=== PATIENT | female | born 1950 | race Caucasian/White ===

== ENCOUNTER 2023-11-04 09:29 | Day surgery (SDC) | payer MEDICARE, OTHER ==
[~2023-11-04] VITALS: Ht 320 cm; Wt 77.5 kg
[~2023-11-04 09:29] MED LIST: ARMOUR THYROID90 MG PO; COMBIGAN EYE DRO5 ML OD; COZAAR50 MG PO; FISH OIL SOFTG1 EAC2 PO; IBLOOD GLUCOSE TEST STRIP 1 EA TEST VI PRN; LACTATED RINGER'S 1,000 ML IV SCH; LIDOCAINE HCL 1% 5 ML SDV INJ ONE; MIDAZOLAM HCL 5 MG/5 ML VIAL IV PRN; MULTIVITAMINS1 EAC7 PO; NP THYROID30 MG PO; TURMERIC500 M2; VITAMIN C1000 MG; VITAMIN D1000 UNI1 PO; fentaNYL citrate 100 MCG/2 ML VIAL IV PRN
[2023-11-04 09:55] VITALS: BP 158/79
[2023-11-04] MEDS ORDERED: MIDAZOLAM HCL 2 MG/2 ML VIAL ONE (10:01)
[2023-11-04] MEDS ORDERED: fentaNYL citrate 100 MCG/2 ML VIAL ONE ×2 (10:01→10:37)
--- NOTE | 2023-11-04 11:33 | NUR ---
11/04/23 1133 [place] 1122-PATIENT ARRIVED TO PACU ON 2L NC RR EVEN. PATIENT REACTIVE TO VERBAL STIMULI DENIES PAIN OR NAUSEA. ENCOURAGED TO PASS GAS. IVF INFUSING. SR HR 60'S. 1132-PATIENT SLEEPING PASSING GAS AWAKENS . 2L NC 94% RR EVEN. DENIES PAIN OR NAUSEA. DOZES BACK TO SLEEP.
[2023-11-04 12:17] VITALS: BP 108/68
--- NOTE | 2023-11-06 09:43 | OR ---
[facility] [address] [place], [place] [address] Signed DATE OF OPERATION: 11/04/2023 SURGEON: Robin Corey MD PREOPERATIVE DIAGNOSIS: Colon screening. POSTOPERATIVE DIAGNOSES: 1. Mild right-sided colitis. 2. Low sessile adenomatous polyp (excised). PROCEDURES: 1. Total colonoscopy to cecum with random biopsies. 2. Hot snare polypectomy low rectal polyp. ANESTHESIA: Intravenous sedation; fentanyl 150 mcg and Versed 7 mg. INDICATION: This 73-year-old white woman is a patient of Andres Ferguson. She is known to have a left-sided spigelian hernia which is yet to be scheduled and repaired as she is "thinking about it." The patient last underwent colonoscopy in 2013, which was normal. She is currently noted to have some episodes of rectal bleeding. She does have family history of possible ulcerative colitis. She is admitted at this time to undergo colonoscopy. She understands the risk of bleeding, infection, and perforation. FINDINGS: The prep was good. The procedure was extremely difficult, but ultimately was accomplished fully to the cecum. Angulation deformity in the splenic flexure and right colon provided great challenge for safe passage of the scope, but it was accomplished ultimately. She did have an adenomatous appearing polyp approximately 1.5 cm in the very low rectum, which was excised. There is mild inflammatory change, having an appearance of "burnt out" colitis in the right side, though she is not known to specifically have colitis herself. PROCEDURE IN DETAIL: The patient was brought to the surgical endoscopy suite and placed in the lateral decubitus position, given intravenous sedation to the point of slurred speech and Electronically Signed By: ROBIN COREY MD 11/06/23 0943 PATIENT NAME: ROSANNE WALKER OPERATIVE REPORT DATE OF : 54 REPORT #: [id number] PHYSICIAN: ROBIN COREY MD PCP: ANDRES FERGUSON PAC REPORT IS CONFIDENTIAL AND NOT TO BE RELEASED WITHOUT AUTHORIZATION [facility] [address] [place], [place] [address] Signed nystagmus with full cardiopulmonary monitoring. Digital rectal examination was normal. An Olympus video colonoscope was passed in the rectum and manipulated throughout the colon. Beyond the splenic flexure, passage was somewhat challenging requiring various maneuvers, ultimately requiring the supine position. Abdominal wall stabilization did not have appreciable beneficial effect. With care and considerable amount of time and various manipulations, the scope was ultimately advanced to the cecum itself. The right colon appeared to have a "burned out colitis" appearance, though she is not known to have had true ulcerative colitis in the past. Biopsies were taken of the cecum once fully visualized as well as the right colon, hepatic flexure, transverse colon, and splenic flexure. Biopsies were additionally taken of the sigmoid. Upon withdrawal to the rectum, a pedunculated broad-based polyp was noted. This is in the very lowest portion of the rectum. This was excised with hot snare polypectomy technique and extracted for evaluation and permanent pathology. The scope was reintroduced and retroflexed view undertaken showed the excision site to be completely hemostatic. The scope was removed and the patient was taken to the recovery room in good condition. CONCLUDING DIAGNOSES: 1. Low rectal polyp, possibly accounting for rectal bleeding. 2. Questionable right-sided "burn out" of colon with chronic colitis appearance. 3. Difficult colonoscopy. PLAN: We will schedule follow up to see her back for spigelian hernia and to review her pathology report and findings regarding the colon. Robin Corey MD JM/MODL /[id number] cc: GRICEL Rueda Electronically Signed By: ROBIN COREY MD 11/06/23 0943 PATIENT NAME: ROSANNE WALKER OPERATIVE REPORT DATE OF : 54 REPORT #: [id number] PHYSICIAN: ROBIN COREY MD PCP: ANDRES FERGUSON PAC REPORT IS CONFIDENTIAL AND NOT TO BE RELEASED WITHOUT AUTHORIZATION [facility] [address] [place] [address] Signed Copies: ~ Electronically Signed By: ROBIN COREY MD 11/06/23 0943 PATIENT NAME: ROSANNE WALKER OPERATIVE REPORT DATE OF : 54 REPORT #: [id number] PHYSICIAN: ROBIN COREY MD PCP: ANDRES FERGUSON PAC REPORT IS CONFIDENTIAL AND NOT TO BE RELEASED WITHOUT AUTHORIZATION
--- NOTE | 2023-11-06 17:10 | PATH ---
[facility] [address] [place], [place] [address] Signed SPECIMEN(S): A CECUM BIOPSY SPECIMEN(S): B HEPATIC FLEXURE BIOPSY SPECIMEN(S): C TRANSVERSE BIOPSY SPECIMEN(S): D SPLENIC FLEXURE BIOPSY SPECIMEN(S): E SIGMOID BIOPSY SPECIMEN(S): F RECTUM BIOPSY SPECIMEN(S): G RECTAL POLYP SPECIMEN SOURCE: A. CECUM BIOPSY B. HEPATIC FLEXURE BIOPSY C. TRANSVERSE BIOPSY D. SPLENIC FLEXURE BIOPSY E. SIGMOID BIOPSY F. RECTUM BIOPSY G. RECTAL POLYP CLINICAL HISTORY: History rectal bleeding/family history of colon cancer FINAL PATHOLOGIC DIAGNOSIS: A. Cecum, biopsy: - Benign colonic mucosa, negative for specific diagnostic abnormality. B. Hepatic flexure, biopsy: - Benign colonic mucosa, negative for specific diagnostic abnormality. C. Transverse, biopsy: - Benign colonic mucosa, negative for specific diagnostic abnormality. D. Splenic flexure, biopsy: - Benign colonic mucosa, negative for specific diagnostic abnormality. E. Sigmoid, biopsy: - Benign colonic mucosa, negative for specific diagnostic abnormality. F. Rectum, biopsy: - Benign colonic mucosa with hyperplastic features (two fragments). - Negative for pathologic inflammation. G. Rectal, polyp: - Tubular adenoma (multiple fragments). JVR:cml MICROSCOPIC EXAMINATION: Histologic sections of all submitted blocks are examined by light microscopy. These findings, together with the gross examination, support the pathologic PATIENT NAME: ROSANNE WALKER PATHOLOGY DATE OF : 54 REPORT #: [id number] PHYSICIAN: GHADA BALDWIN PCP: ANDRES FERGUSON PAC REPORT IS CONFIDENTIAL AND NOT TO BE RELEASED WITHOUT AUTHORIZATION [facility] [address] [place], [place] [address] Signed diagnosis. GROSS DESCRIPTION: A. The specimen, labeled and designated "Radha, cecum biopsy," is received in formalin and consists of three guthrie soft tissue fragments, ranging from 0.1-0.4 cm. Entirely submitted in (A1). B. The specimen, labeled and designated "Radha, hepatic flexure biopsy," is received in formalin and consists of three guthrie soft tissue fragments, ranging from 0.2-0.3 cm. Entirely submitted in (B1). C. The specimen, labeled and designated "Radha, transverse biopsy," is received in formalin and consists of two guthrie soft tissue fragments, ranging from 0.1-0.3 cm. Entirely submitted in (C1). D. The specimen, labeled and designated "Radha, splenic flexure biopsy," is received in formalin and consists of three guthrie soft tissue fragments, ranging from 0.1-1.3 cm. Entirely submitted in (D1). E. The specimen, labeled and designated "Radha, sigmoid biopsy," is received in formalin and consists of two guthrie soft tissue fragments, ranging from 0.3-0.8 cm. Entirely submitted in (E1). F. The specimen, labeled and designated "Radha, rectum biopsy," is received in formalin and consists of two guthrie soft tissue fragments, ranging from 0.1-0.3 cm. Entirely submitted in (F1). G. The specimen, labeled and designated "Radha, rectal polyp," is received in formalin and consists of two guthrie-brown polypoid pieces of tissue (0.5 x 0.4 x 0.4 cm, and 0.8 x 0.6 x 0.6 cm). The possible resection margins are differentially inked black (bisected) and blue (trisected) respectively, and sectioning reveals pink-guthrie to red-brown soft cut surfaces. The specimen is submitted entirely in cassette (G1). VB (under the direct supervision of a pathologist) The Gross Description was prepared using a voice recognition system. The report was reviewed for accuracy; however, sound-alike word errors, addition and/or deletions may occur. If there is any question about this report, please contact Client Services. PERFORMING LABORATORY: Technical component was performed by [facility], [address] [place] [id number] (CLIA# [id number]). Professional interpretation was performed by [facility], [address] [place] [id number] (CLIA#: [id number]). Diagnostician: Gopi Metz MD PATIENT NAME: ROSANNE WALKER PATHOLOGY DATE OF : 54 REPORT #: [id number] PHYSICIAN: GHADA BALDWIN PCP: ANDRES FERGUSON PAC REPORT IS CONFIDENTIAL AND NOT TO BE RELEASED WITHOUT AUTHORIZATION [facility] [address] [place] [address] Signed Pathologist Electronically Signed 11/06/2023 Copies: ~ PATIENT NAME: ROSANNE WALKER PATHOLOGY DATE OF : 54 REPORT #: [id number] PHYSICIAN: GHADA BALDWIN PCP: ANDRES FERGUSON PAC REPORT IS CONFIDENTIAL AND NOT TO BE RELEASED WITHOUT AUTHORIZATION
== END 2023-11-04 12:35 | disposition home or self-care (01) ==
LOC: DS 09:29
PROVIDERS: ATTEND Surgery
PROC: 0DBL8ZZ Excision of Transverse Colon, Via Natural or Artificial Opening Endoscopic (ICD-10-PCS; 2023-11-04)
PROC: 0DBN8ZZ Excision of Sigmoid Colon, Via Natural or Artificial Opening Endoscopic (ICD-10-PCS; 2023-11-04)
PROC: 0DBP8ZZ Excision of Rectum, Via Natural or Artificial Opening Endoscopic (ICD-10-PCS; 2023-11-04)
PROC: 0DBH8ZZ Excision of Cecum, Via Natural or Artificial Opening Endoscopic (ICD-10-PCS; principal; 2023-11-04 11:00)
DX: Z12.11 Encounter for screening for malignant neoplasm of colon (principal); D12.8 Benign neoplasm of rectum; K63.5 Polyp of colon; K52.9 Noninfective gastroenteritis and colitis, unspecified; K43.6 Other and unspecified ventral hernia with obstruction, without gangrene; I10 Essential (primary) hypertension; Z88.2 Allergy status to sulfonamides; Z80.0 Family history of malignant neoplasm of digestive organs; Z90.5 Acquired absence of kidney
CPT/HCPCS: 88305; 99153; G0500; J2250; J3010

== ENCOUNTER 2024-03-23 06:00 | Day surgery (SDC) | payer MEDICARE, OTHER ==
[2024-03-18 14:51] VITALS: BP 139/86
[~2024-03-23] VITALS: Ht 167.6 cm; Wt 72.7 kg
[~2024-03-23 06:00] MED LIST changes: -IBLOOD GLUCOSE TEST STRIP 1 EA TEST VI PRN; -LIDOCAINE HCL 1% 5 ML SDV INJ ONE; -MIDAZOLAM HCL 5 MG/5 ML VIAL IV PRN; -fentaNYL citrate 100 MCG/2 ML VIAL IV PRN
[2024-03-23 06:16] VITALS: BP 168/78
[2024-03-23] MEDS ORDERED: GEL LUBRICATING MULTI-INGRED LARGE TUBE ONE (06:55)
[2024-03-23] MEDS ORDERED: BACITRACIN ONE (06:55)
[2024-03-23] MEDS ORDERED: CEFAZOLIN SODIUM 2 GM/20 ML SYR IV SCH (07:00)
[2024-03-23] MEDS ORDERED: HEParin SOD (PORCINE) 5,000 UNIT/ML SDV SUB-Q SCH (07:00)
[2024-03-23] MEDS ORDERED: IBLOOD GLUCOSE TEST STRIP 1 EA TEST VI PRN (07:00)
[2024-03-23] MEDS ORDERED: LIDOCAINE HCL 1% 5 ML SDV INJ ONE (07:00)
[2024-03-23] MEDS ORDERED: BUPIVACAINE 0.75% IN DEXTROSE 2 ML AMP ONE (08:26)
[2024-03-23] MEDS ORDERED: fentaNYL citrate 100 MCG/2 ML VIAL ONE (08:26)
[2024-03-23] MEDS ORDERED: LIDOCAINE HCL 2% 5 ML SDV ONE (08:26)
[2024-03-23] MEDS ORDERED: propofoL 200 MG/20 ML VIAL ONE ×2 (08:44→08:45)
[2024-03-23] MEDS ORDERED: DEXAMETHASONE SOD PHOS 4 MG/ML VIAL ONE (08:44)
[2024-03-23] MEDS ORDERED: ACETAMINOPHEN 1,000 MG/100 ML VIAL ONE (08:53)
[2024-03-23] MEDS ORDERED: ondansetron HCL 4 MG/2 ML VIAL ONE (09:15)
[2024-03-23] MEDS ORDERED: ePHEDrine sulfate 50 MG/ML AMP ONE (09:30)
[2024-03-23] MEDS ORDERED: SEVOFLURANE 250 ML BTL INH ONE (09:42)
[2024-03-23] MEDS ORDERED: OXYCODON-ACETA1 EAC2 PO (10:50)
[2024-03-23] MEDS ORDERED: IBUPROFEN600 MG PO (10:50)
[2024-03-23] MEDS ORDERED: ACETAMINOPHEN500 MG PO (10:51)
[2024-03-23 11:00] VITALS: BP 128/58
[2024-03-23] MEDS ORDERED: NALOXONE HCL 0.4 MG SYR IV PRN (11:00)
[2024-03-23] MEDS ORDERED: LACTATED RINGER'S 1,000 ML IV SCH (11:00)
[2024-03-23] MEDS ORDERED: IBUPROFEN 600 MG TAB PO PRN (11:00)
[2024-03-23] MEDS ORDERED: ondansetron HCL 4 MG/2 ML VIAL IV PRN (11:00)
[2024-03-23] MEDS ORDERED: ACETAMINOPHEN 500 MG TAB PO PRN (11:00)
[2024-03-23] MEDS ORDERED: OXYCODONE/APAP 7.5/325 TAB PO PRN (11:00)
--- NOTE | 2024-03-23 11:00 | NUR ---
1100- PT ARRIVES FROM PACU SITTING IN SEMI FOWLERS AND TALKING WITH RN. BEDSIDE REPORT RECIEVED FROM MERY GORMAN. PT O2 LEVELS ARE IN THE LOW 90S. PT IS ENCOURAGED TO DEEP BREATH. PT IS EDUCATED ON USING A IS. PT O2 LEVELS INCREASED TO MID 90S WITH USE OF IS AND DEEP BREATHING. PT DENIES PAIN BUT REPORTS SOME NAUSEA WHEN MOVING AROUND IN THE BED. SURGICAL SITES ASSESSED WITH MERY GORMAN. BOTH SITES ARE CLEAN, DRY AND INTACT. VS OBTAINED. PT GIVEN JELLO AND WATER. PT AWARE OF DISCHARGE CRITERIA. SADDLE BLOCK HAS RESOLVED.
--- NOTE | 2024-03-23 11:29 | NUR ---
03/23/24 1129 Lena Baird 1023 PT ARRIVED TO PACU ON RA AND WAKES EASILY TO VERBAL STIMULI AND DENIES PAIN AND NAUSEA. O2 SAT MID 90S. 1025 PT REPORTS FULL FEELING IN HER LEGS AND PT REORIENTED TO PACU. PLAN OF CARE DISCUSSED. 1100 MD AT BEDSIDE TALKING TO PT. PT REPORTS "I AM STARTING TO FEEL IT." PT POINTING TO ABD AND REPORTS 1-2/10 TOLERABLE PAIN. REPORT TO DS RN AND ALL QUESTIONS ANSWERED.
[2024-03-23 11:55] VITALS: BP 150/58
--- NOTE | 2024-03-23 12:02 | NUR ---
1200- PT SITTING UP IN THE STRETCHER AND EATING HER PUDDING AND JELLO AND APPLE SAUCE. PT SIPPING ON COFFEE AND WATER AND PT IS TOLERATING WELL. PT DENIES PAIN AND NAUSEA. SURGICAL SITES ARE CDI. PT IS USING HER IS OFF AND ON AND HER O2 SATURATIONS ARE MAINTAINING IN THE MID 90S. PT DENIES ANY NEEDS AT THIS TIME. CALL LIGHT IN REACH, AND BED IN THE LOWEST POSITION AND BRAKES SET.
[2024-03-23 12:58] VITALS: BP 154/74
--- NOTE | 2024-03-23 13:00 | NUR ---
1300- PT IS SITTING UP IN THE STRETCHER AND TALKING ON THE PHONE WITH HER SON. VITAL SIGNS OBTAINED. PT DENIES PAIN AND NAUSEA. SURGICAL SITES ARE SHOWING SOME SMALL AMOUNTS OF SHADOWING ON BOTH SITES. PT REPORTS SHE MAY NEED TO USE THE RESTROOM SOON. 1305- PT IV SALINE LOCKED. PT UP TO THE RESTROOM. GAIT IS STEADY AND EVEN. PT RETURNS FROM BATHROOM AND RETURNS TO ROOM 7. PT OUTPUT IS 35O ML OF URINE. HEMERROID SITE REDRESSED WITH ABD PAD AND TAPE. PT GETTING DRESSED INDEPENDENTLY.
--- NOTE | 2024-03-23 13:58 | NUR ---
1345- PT IS DRESSED. PT DENIES PAIN AND NAUSEA. IV REMOVED. DC PAPERWORK GONE OVER, AND ALL QUESTIONS AND CONCERNS ANSWERED. PT AMBULATES TO THE WHEELCHAIR WITH A STEADY AND EVEN GAIT. PT DC'S FROM DAY SURGERY WITH ALL BELONGINGS AND DC PAPERWORK WITH HER SISTER IN LAW.
--- NOTE | 2024-03-23 14:05 | OR ---
[facility] [address] [place], [place] [address] Signed DATE OF OPERATION: 03/23/2024 SURGEON: Robin Corey MD PREOPERATIVE DIAGNOSES: 1. Left abdominal wall hernia, spigelian hernia versus inguinal hernia. 2. Symptomatic right anterior external hemorrhoid. POSTOPERATIVE DIAGNOSES: 1. Symptomatic right anterior external hemorrhoid, non-inflamed, non-thrombotic. 2. Left indirect inguinal hernia. PROCEDURES: 1. Exam under anesthesia and excision of right anterior external hemorrhoid. 2. Left abdominal wall exploration. 3. Left inguinal hernia repair included implantation of Prolene mesh and excision of cord remnant. ANESTHESIA: Aidan Toscano CRNA; initial saddle block with local and subsequent general LMA and local. INDICATIONS: This 74-year-old white woman is a patient of Marni Ferguson. She underwent colonoscopy on November 03. The patient is noted to have a hernia in the left lower abdomen highly suggestive of spigelian hernia. The location was not strictly in the groin, it was cephalad to this. The patient has episodic symptomatic external hemorrhoid in the right anterior aspect. Examination of the abdominal wall shows possible spigelian hernia with bulging of the intraabdominal viscera in the left pararectus space, but rather low in the abdomen compared to usual spigelian hernia. A CT scan was performed, which confirmed bowel loops within the hernia, but did not better characterize the possibility of inguinal versus spigelian type hernia. She is admitted at this time to undergo excision of the symptomatic external hemorrhoid as well as hernia repair whether spigelian or inguinal. She understands the risk of bleeding, infection, recurrence, and wished to proceed. FINDINGS: The dominant hemorrhoid was in the right anterior aspect, it was excised completely without problem. It was non-thrombotic and not inflamed currently. Electronically Signed By: ROBIN COREY MD 03/23/24 1405 PATIENT NAME: ROSANNE WALKER OPERATIVE REPORT DATE OF : 54 REPORT #: [id number] PHYSICIAN: ROBIN COREY MD PCP: MARNI FERGUSON PAC REPORT IS CONFIDENTIAL AND NOT TO BE RELEASED WITHOUT AUTHORIZATION [facility] [address] [place], [place] [address] Signed Abdominal wall hernia was initially thought to be a spigelian hernia as well as lateral to the rectus abdominis, but on further dissection, it appeared to emanate from the area of the internal ring, and although directed cephalad had weakness associated with the floor of the canal. Ultimately, the hernia and its sac were replaced into the properitoneal space and implantation of mesh in typical inguinal canal position was accomplished. Excision of the remnant of the cord (round ligament) was undertaken as well. DESCRIPTION OF PROCEDURE: The patient was brought to the operating room after undergoing a saddle block anesthetic and placed in a prone virgen-knife position. The buttocks were taped apart. The perianal area was prepared with a Betadine based solution. A right anterior external hemorrhoid was quite obvious, it was grasped with a Alvarado clamp and 3 mL of 0.25% Marcaine with epinephrine was injected locally. Excision was undertaken of the redundant skin and hemorrhoidal tissue down to the level of the dentate line. The base of it was oversewn with a 3-0 chromic. The skin was then closed with a running 3-0 chromic, leaving the space for drainage externally. The patient was then carefully transitioned in position to a supine position on a separate operating room table, and she was then given a general anesthetic with an LMA device. The lower abdomen had previous been marked at the area of herniation, which was high in the inguinal area and low in the abdominal wall. A transverse incision was made at the site of the angel after sterile preparation and draping. Dissection was carried through the subcutaneous tissue. Laxity of the external oblique was noted and the external oblique incised along its fibers. This was opened and revealed was fatty tissue consistent with herniation initially thought likely to be most consistent with spigelian hernia. Dissection was carried inferiorly, where it appeared that the base of the hernia sac actually emanated from beneath the external oblique more in line with the proximal inguinal canal rather than a separate defect along the semilunar line. This tissue was dissected free more fully and freed from the floor of the inguinal canal. External oblique had been reflected medially and laterally and secured with hemostats. The remnant of the cord (round ligament) was dissected free and secured the space with a hemostat, transected and then secured with a 2-0 chromic suture. The properitoneal fat, which was now bulky and separate was replaced back into the properitoneal space. A segment of Prolene mesh was cut to an elliptical configuration and secured in an underlay technique to include all the inguinal canal and all the area of the fascial defect laterally and superiorly. Interrupted 2-0 Prolene was used for this purpose. A 10 mL of 0.25% Marcaine with epinephrine was injected locally. Irrigation undertaken. The external oblique reapproximated with running 2-0 Vicryl suture. Dickson layer was reapproximated with interrupted 2-0 Vicryl and skin closed in subcuticular 3-0 Vicryl. Steri-Strips were applied as was an Acticoat dressing. The patient was extubated and transferred to the recovery room in good condition, having suffered no complications. Sponge, needle, and instrument counts reported as correct x3. Electronically Signed By: ROBIN COREY MD 03/23/24 1407 PATIENT NAME: ROSANNE WALKER OPERATIVE REPORT DATE OF : 54 REPORT #: [id number] PHYSICIAN: ROBIN COREY MD PCP: MARNI FERGUSON PAC REPORT IS CONFIDENTIAL AND NOT TO BE RELEASED WITHOUT AUTHORIZATION [address] [address] Signed Robin Corey MD JM/MODL /[id number] cc: Marni Ferguson PA-C Copies: ~ Electronically Signed By: ROBIN COREY MD 03/23/24 1405 PATIENT NAME: ROSANNE WALKER OPERATIVE REPORT DATE OF : 54 REPORT #: [id number] PHYSICIAN: ROBIN COREY MD PCP: MARNI FERGUSON PAC REPORT IS CONFIDENTIAL AND NOT TO BE RELEASED WITHOUT AUTHORIZATION
--- NOTE | 2024-03-25 10:40 | PATH ---
[facility] [address] [facility] [place], [place] [address] Signed SPECIMEN(S): A RIGHT ANTERIOR HEMORRHOID COMPLEX SPECIMEN SOURCE: A. RIGHT ANTERIOR HEMORRHOID COMPLEX CLINICAL HISTORY: External hemorrhoid FINAL PATHOLOGIC DIAGNOSIS: Hemorrhoid, right anterior, hemorrhoidectomy: - Anoglandular mucosa with dilated hemorrhoidal varices BRP MICROSCOPIC EXAMINATION: Histologic sections of all submitted blocks are examined by light microscopy. These findings, together with the gross examination, support the pathologic diagnosis. GROSS DESCRIPTION: The specimen, labeled and designated "Isidra Walker, right anterior hemorrhoid complex per requisition," is received in formalin and consists of a 3.5 x 2.3 x 1.1 cm portion of guthrie wrinkly skin. The resection margin is inked blue and the specimen is serially sectioned revealing a white homogenous cut surface with scant amount of hemorrhage. There are no discrete masses or lesions. [employer] sections are submitted in cassette A1. AA (under the direct supervision of a pathologist) The Gross Description was prepared using a voice recognition system. The report was reviewed for accuracy; however, sound-alike word errors, addition and/or deletions may occur. If there is any question about this report, please contact Client Services. ADDITIONAL NOTES: Immunohistochemical and/or in situ hybridization studies if performed in this case included appropriate positive controls that reacted as expected. This test was developed and its performance characteristics determined by [facility]. It has not been cleared or approved by the U.S. Food and Drug Administration. The FDA has determined that such clearance or approval is not necessary. This test is used for clinical purposes. It should not be regarded as investigational or for research. [facility] is certified under the PATIENT NAME: ROSANNE WALKER PATHOLOGY DATE OF : 54 REPORT #: [id number] PHYSICIAN: GHADA BALDWIN PCP: ANDRES FERGUSON PAC REPORT IS CONFIDENTIAL AND NOT TO BE RELEASED WITHOUT AUTHORIZATION [facility] [address] [place] [place] [address] Signed Clinical Laboratory Improvement Amendments of 1988 (CLIA) as qualified to perform high complexity clinical laboratory testing. PERFORMING LABORATORY: Technical [place] [address] (CLIA# [id number]). Professional interpretation was performed by [facility] [place] [address] (CLIA#: [id number]). Diagnostician: Marino Lugo MD Pathologist Electronically Signed 03/25/2024 Copies: ~ PATIENT NAME: ROSANNE WALKER PATHOLOGY DATE OF : 54 REPORT #: [id number] PHYSICIAN: GHADA BALDWIN PCP: ANDRES FERGUSON PAC REPORT IS CONFIDENTIAL AND NOT TO BE RELEASED WITHOUT AUTHORIZATION
--- NOTE | 2024-03-29 19:24 | EKG ---
[facility] [address] [facility] [place], [place] [address] Signed Normal sinus rhythm Normal ECG No previous ECGs available Confirmed by Ishmael Del Rio MD ([id number]) on 03/29/2024 7:24:16 PM Electronically Signed By: ISHMAEL DEL RIO MD 03/29/241923 PATIENT NAME: ROSANNE WALKER Electrocardiogram DATE OF : 54 PHYSICIAN: ISHMAEL DEL RIO MD REPORT #: [id number] REPORT IS CONFIDENTIAL AND NOT TO BE RELEASED WITHOUT AUTHORIZATION
== END 2024-03-23 13:45 | disposition home or self-care (01) ==
LOC: DS 06:00 → EDSTATUS 08:00 → DS 08:00
PROVIDERS: ATTEND Surgery
PROC: 06BY0ZC Excision of Hemorrhoidal Plexus, Open Approach (ICD-10-PCS; principal; 2024-03-23 08:00)
PROC: 0YU60JZ Supplement Left Inguinal Region with Synthetic Substitute, Open Approach (ICD-10-PCS; 2024-03-23 08:00)
DX: K40.90 Unilateral inguinal hernia, without obstruction or gangrene, not specified as recurrent (principal); K64.4 Residual hemorrhoidal skin tags; I10 Essential (primary) hypertension; E03.9 Hypothyroidism, unspecified; Z88.5 Allergy status to narcotic agent; Z88.2 Allergy status to sulfonamides; Z79.890 Hormone replacement therapy; Z79.899 Other long term (current) drug therapy; Z90.5 Acquired absence of kidney; Z86.0101 Personal history of adenomatous and serrated colon polyps; Z80.0 Family history of malignant neoplasm of digestive organs
CPT/HCPCS: 00830; 88304; 93005; 93010; C1781; J0131; J0690; J1100; J1644; J2003; J2405; J2704; J3010; J7121